=== PATIENT | male | born 1965 | race Caucasian/White ===

== ENCOUNTER 2017-03-23 15:23 | Emergency (ER) | payer OTHER ==
--- NOTE | 2017-03-23 15:35 | EDM.PDOC ---
ED HPI Allergic Reaction - General Chief Complaint: Allergic Reaction Stated Complaint: ALLERGIC REACTION Time Seen by Provider: 03/23/17 15:29 - History of Present Illness INITIAL COMMENTS - FREE TEXT/NARRATIVE: HISTORY AND PHYSICAL: History of present illness: Patient's 51-year-old white male concern of hives he's been using Benadryl for this with no improvement he is to change all his detergents washed all of his clothes and has yet to be made to identify any possible allergens. There is no tongue or lip swelling no shortness of breath and no other Review of systems: As per history of present illness and below otherwise all systems reviewed and negative. Past medical history: As per history of present illness and as reviewed below otherwise noncontributory. Surgical history: As per history of present illness and as reviewed below otherwise noncontributory. Social history: No reported history of drug or alcohol abuse. Family history: As per history of present illness and as reviewed below otherwise noncontributory. Physical exam: HEENT: Atraumatic, normocephalic, pupils reactive, negative for conjunctival pallor or scleral icterus, mucous membranes moist, throat clear, neck supple, nontender, trachea midline. No tongue or lips will Lungs: Clear to auscultation, breath sounds equal bilaterally, chest nontender. Heart: S1S2, regular, negative for clicks, rubs, or JVD. Abdomen: Soft, nondistended, nontender. Negative for masses or hepatosplenomegaly. Negative for costovertebral tenderness. Pelvis: Stable nontender. Genitourinary: Deferred. Rectal: Deferred. Extremities: Atraumatic, negative for cords or calf pain. Neurovascular unremarkable. Neuro: Awake, alert, oriented. Cranial nerves II through XII unremarkable. Cerebellum unremarkable. Motor and sensory unremarkable throughout. Exam nonfocal. Skin: Patient has a urticaria type rash noted diffusely Diagnostics: None Therapeutics: None Impression: #1 urticaria Definitive disposition and diagnosis as appropriate pending reevaluation and review of above. - Related Data Allergies/ADRs: Allergies Allergy/AdvReac Type Severity Reaction Status Date / Time No Known Allergies Allergy Verified 07/29/14 14:30 Home Meds: Home Meds DULoxetine [Cymbalta] 60 mg PO DAILY 07/29/14 [History] Valsartan [Diovan] 160 mg PO DAILY 07/29/14 [History] Past Medical History - Past Health History Medical/Surgical History: Denies Medical/Surgical History Social & Family History - Tobacco Use Smoking Status *Q: Current Every Day Smoker Years of Tobacco use: 30 Used Tobacco, but Quit: No Second Hand Smoke Exposure: Yes - Recreational Drug Use Recreational Drug Use: No ED ROS ALLERGIC REACTION - Review of Systems Review Of Systems: ROS reveals no pertinent complaints other than HPI. ED EXAM GENERAL NO PERIP PULSE - Physical Exam Exam: See Below (See dictation) Departure - Departure Time of Disposition: 15:32 Disposition: Home, Self-Care 01 Condition: good Clinical Impression: Urticaria Additional Instructions: The following information is given to patients seen in the emergency department who are being discharged to home. This information is to outline your options for follow-up care. We provide all patients seen in our emergency department with a follow-up referral. The need for follow-up, as well as the timing and circumstances, are variable depending upon the specifics of your emergency department visit. If you don't have a primary care physician on staff, we will provide you with a referral. We always advise you to contact your personal physician following an emergency department visit to inform them of the circumstance of the visit and for follow-up with them and/or the need for any referrals to a consulting specialist. The emergency department will also refer you to a specialist when appropriate. This referral assures that you have the opportunity for followup care with a specialist. All of these measure are taken in an effort to provide you with optimal care, which includes your followup. Under all circumstances we always encourage you to contact your private physician who remains a resource for coordinating your care. When calling for followup care, please make the office aware that this follow-up is from your recent emergency room visit. If for any reason you are refused follow-up, please contact the [facility] emergency department at and asked to speak to the emergency department charge nurse. [facility] [address] [place] [id number] Medrol Dosepak as prescribed continue Benadryl Zantac as prescribed followup primary medical doctor and/or clinical followup return as needed as discussed
[2017-03-23 15:58] VITALS: BP 144/85
== END 2017-03-23 15:51 | disposition home or self-care (01) ==
LOC: MW.ED 15:23
DX: L50.9 Urticaria, unspecified (principal); Z79.899 Other long term (current) drug therapy; F17.200 Nicotine dependence, unspecified, uncomplicated
CPT/HCPCS: 99282; 99283

== ENCOUNTER 2017-03-26 08:57 | Observation (INO) | payer OTHER ==
[2017-03-26] MEDS ORDERED: diphenhydrAMINE 50 MG/ML SDV IVPUSH ONE (09:27)
[2017-03-26] MEDS ORDERED: Albuterol/Ipratropium 3.0-0.5 MG/3 ML Neb Soln NEB ONE (09:27)
[2017-03-26] MEDS ORDERED: methylPREDNISolone Sodium Succinate 125 MG/2 ML SDV IVPUSH ONE (09:27)
--- NOTE | 2017-03-26 09:38 | EDM.PDOC ---
ED HPI Allergic Reaction - General Chief Complaint: Allergic Reaction Stated Complaint: ALLERGIC REACTION Time Seen by Provider: 03/26/17 09:29 - History of Present Illness INITIAL COMMENTS - FREE TEXT/NARRATIVE: HISTORY AND PHYSICAL: History of present illness: This 51-year-old white male transferred Materna facial swelling upper lip swelling and difficulty breathing and worse over last 24 hours he has had a rash off and on when seen here several days prior for this presumptive allergic reaction he was put on Medrol Dosepak and Zantac he has been using Benadryl at home he does have appointment with an allergy bag press operator tomorrow this episode last night was more severe it has improved slightly he is on Diovan and states he's been on this for months this was recently changed to a generic form. Review of systems: As per history of present illness and below otherwise all systems reviewed and negative. Past medical history: As per history of present illness and as reviewed below otherwise noncontributory. Surgical history: As per history of present illness and as reviewed below otherwise noncontributory. Social history: No reported history of drug or alcohol abuse. Family history: As per history of present illness and as reviewed below otherwise noncontributory. Physical exam: HEENT: Atraumatic, normocephalic, pupils reactive, negative for conjunctival pallor or scleral icterus, mucous membranes moist, throat clear, neck supple, nontender, trachea midline. Angioedema noted primarily involving his upper lip Lungs: Rare end expiratory wheezing, breath sounds equal bilaterally, chest nontender. Heart: S1S2, regular, negative for clicks, rubs, or JVD. Abdomen: Soft, nondistended, nontender. Negative for masses or hepatosplenomegaly. Negative for costovertebral tenderness. Pelvis: Stable nontender. Genitourinary: Deferred. Rectal: Deferred. Extremities: Atraumatic, negative for cords or calf pain. Neurovascular unremarkable. Neuro: Awake, alert, oriented. Cranial nerves II through XII unremarkable. Cerebellum unremarkable. Motor and sensory unremarkable throughout. Exam nonfocal. Diagnostics: None Therapeutics: Albuterol ipratropium nebulizer Solu-Medrol 125 mg IV Benadryl 50 mg IV Impression: #1 angioedema #2 bronchospasm Definitive disposition and diagnosis as appropriate pending reevaluation and review of above. - Related Data Allergies/ADRs: Allergies Allergy/AdvReac Type Severity Reaction Status Date / Time No Known Allergies Allergy Verified 03/26/17 09:12 Home Meds: Home Meds DULoxetine [Cymbalta] 60 mg PO DAILY 07/29/14 [History] Valsartan [Diovan] 160 mg PO DAILY 07/29/14 [History] Past Medical History - Past Health History Medical/Surgical History: Denies Medical/Surgical History Cardiovascular History: Reports: Hypertension Psychiatric History: Reports: Depression Endocrine/Metabolic History: Reports: Obesity/BMI 30+ - Past Surgical History GI Surgical History: Reports: Cholecystectomy Social & Family History - Family History Family Medical History: Noncontributory - Tobacco Use Smoking Status *Q: Current Every Day Smoker Years of Tobacco use: 35 Packs/Tins Daily: 1 Used Tobacco, but Quit: No Second Hand Smoke Exposure: Yes - Caffeine Use Caffeine Use: Reports: Coffee Caffeine Use Comment: 1 cup - Recreational Drug Use Recreational Drug Use: No ED ROS ALLERGIC REACTION - Review of Systems Review Of Systems: ROS reveals no pertinent complaints other than HPI. ED EXAM GENERAL NO PERIP PULSE - Physical Exam Exam: See Below (See dictated) Course - Vital Signs Last Recorded V/S: Last Vital Signs Temp 36.7 C 03/26/17 09:12 Pulse 80 03/26/17 09:42 Resp 18 03/26/17 09:42 BP 162/88 H 03/26/17 09:42 Pulse Ox 97 03/26/17 09:42 - Orders/Labs/Meds Orders: Active Orders 24 hr Category Date Time Status RT Aerosol Therapy [RC] ASDIRECTED Care 03/26/17 09:27 Active Meds: Medications Discontinued Medications Generic Name Dose Route Start Last Admin Trade Name Dasha PRN Reason Stop Dose Admin Albuterol/Ipratropium 3 ml 03/26/17 09:27 03/26/17 09:31 Duoneb 3.0-0.5 Mg/3 Ml NEB 03/26/17 09:28 3 ml ONETIME ONE Administration Diphenhydramine HCl 50 mg 03/26/17 09:27 03/26/17 09:36 Benadryl IVPUSH 03/26/17 09:28 50 mg ONETIME ONE Administration Methylprednisolone Sodium Succinate 125 mg 03/26/17 09:27 03/26/17 09:37 Solu-Medrol IVPUSH 03/26/17 09:28 125 mg ONETIME ONE Administration Departure - Departure Time of Disposition: 10:06 Disposition: Refer to Observation Condition: good Clinical Impression: Angioedema, Bronchospasm - My Orders Last 24 Hours: My Active Orders 03/26/17 09:27 RT Aerosol Therapy [RC] ASDIRECTED - Assessment/Plan Last 24 Hours: My Active Orders 03/26/17 09:27 RT Aerosol Therapy [RC] ASDIRECTED
[2017-03-26] MEDS ORDERED: Nicotine 21 MG/24 Hr Patch TRDERM ONE (11:18)
[2017-03-26] MEDS ORDERED: diphenhydrAMINE 25 MG Cap PO PRN (12:01)
[2017-03-26] MEDS ORDERED: Ondansetron 4 MG/2 ML SDV IVPUSH PRN (12:02)
--- NOTE | 2017-03-26 12:18 | PCM.HP ---
H&P History of Present Illness - History of Present Illness Initial Comments - Free Text/Narative: 51 yo male who four days ago developed urticarial rash for which he was seen in the [place] ED and given a solumedrol dose pack. He did have follow up appointment at the [facility] who set up an appointment with an Case Management Director tomorrow in [place]. LAst night his rash came back on his arm and legs and he did have lip swelling. He denied any shortness of breath or difficulty swallowing. He denies any new medications. He has not been taking his Diovan or celexa for the past three days. He went back to the [place] [facility] this [place] who sent him to the ED. IN the ED he received solumedrol and benadryl with improvement of rash and resolution of lip swelling. 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 spine disease Psychiatric History: Reports: Depression Endocrine/Metabolic History: Reports: Obesity/BMI 30+ - Past Surgical History GI Surgical History: Reports: Cholecystectomy Social & Family History - Family History Family Medical History: Noncontributory Cardiac: Reports: Hypertension Endocrine/Metabolic: Reports: Diabetes, type II Oncologic: Reports: Hodgkin's lymphoma - Tobacco Use Smoking Status *Q: Current Every Day Smoker Years of Tobacco use: 35 Packs/Tins Daily: 1 Used Tobacco, but Quit: No Second Hand Smoke Exposure: Yes - Caffeine Use Caffeine Use: Reports: Coffee, Energy drinks, Soda, Tea Caffeine Use Comment: 1 cup - Recreational Drug Use Recreational Drug Use: No H&P Review of Systems - Review of Systems: Review Of Systems: See Below General: Reports: no symptoms HEENT: Reports: no symptoms Pulmonary: Reports: No Symptoms Cardiovascular: Reports: no symptoms Gastrointestinal: Reports: No symptoms Genitourinary: Reports: no symptoms Musculoskeletal: Reports: no symptoms Skin: Reports: no symptoms Psychiatric: Reports: no symptoms Neurological: Reports: No Symptoms Hematologic/Lymphatic: Reports: no symptoms Immunologic: Reports: no symptoms Exam - Exam Exam: See Below - Vital Signs Vital Signs: Last Vital Signs Temp 36.9 C 03/26/17 11:40 Pulse 79 03/26/17 11:40 Resp 18 03/26/17 11:40 BP 166/84 H 03/26/17 11:40 Pulse Ox 97 03/26/17 11:40 Weight: 142.428 kg - Exam General: alert, oriented, 4 Lungs: Clear to auscultation, Normal respiratory effort Cardiovascular: regular rate, regular rhythm Abdomen: normal bowel sounds, soft Extremities: normal inspection Skin: warm, dry, intact, rash (patchy mildly erythematous rash on arms) *Q Meaningful Use (ADM) - VTE *Q VTE Criteria *Q: - Stroke *Q Stroke Criteria *Q: - AMI *Q AMI Criteria *Q: Problem List Initiated/Reviewed/Updated: Yes Orders Last 24hrs: Active Orders 24 hr Category Date Time Status Antiembolic Devices [RC] PER UNIT ROUTINE Care 03/26/17 12:06 Ordered Oxygen Therapy [RC] PRN Care 03/26/17 12:02 Ordered Pulse Oximetry [RC] CONTINUOUS Care 03/26/17 12:03 Ordered Up ad Park [RC] ASDIRECTED Care 03/26/17 12:02 Ordered VTE/DVT Education [RC] PER UNIT ROUTINE Care 03/26/17 12:02 Ordered Vital Signs [RC] Q4H Care 03/26/17 12:02 Ordered Regular Diet [DIET] Diet 03/26/17 Breakfast Ordered BASIC METABOLIC PANEL,BMP [CHEM] AM Lab 03/27/17 05:11 Ordered CBC WITH AUTO DIFF [HEME] AM Lab 03/27/17 05:11 Ordered Ondansetron [Zofran] Med 03/26/17 12:02 Ordered 4 mg IVPUSH Q4H PRN diphenhydrAMINE [Benadryl] Med 03/26/17 16:00 Ordered 25 mg PO Q8H predniSONE Med 03/27/17 08:00 Ordered 40 mg PO WITHBREAKFAST Sequential Compression Device [OM.PC] Per Unit Routine Oth 03/26/17 12:03 Ordered Resuscitation Status Routine Resus Stat 03/26/17 12:02 Ordered Medication Orders Diphenhydramine HCl (Benadryl) 25 mg PO Q8H MAYTE Ondansetron HCl (Zofran) 4 mg IVPUSH Q4H PRN PRN Reason: Nausea Prednisone (Prednisone) 40 mg PO WITHBREAKFAST MAYTE Assessment/Plan Comment:: 51 yo male admitted with appears to be an acute allergy with angioedema. We will treat with steroids and antihistamines and monitor overnight.
[2017-03-26 13:05] LABS: CHLORIDE,CL 104 mmol/L (98-110); SODIUM,NA 137 mmol/L (136-146)
[2017-03-26] MEDS: diphenhydrAMINE 25 MG Cap PO SCH ×2 (16:08→23:50)
[2017-03-27 07:34] VITALS: BP 139/79
[2017-03-27] MEDS: diphenhydrAMINE 25 MG Cap PO SCH (07:42)
[2017-03-27 07:50] LABS: CHLORIDE,CL 105 mmol/L (98-110); SODIUM,NA 138 mmol/L (136-146)
[2017-03-27] MEDS ORDERED: predniSONE 20 MG Tab PO SCH (08:00)
[2017-03-27] MEDS ORDERED: methylPREDNISolone Sodium Succinate 125 MG/2 ML SDV IVPUSH ONE (09:08)
--- NOTE | 2017-03-27 09:38 | PCM.DCSUM1 ---
<Galileo Courtney - Last Filed: 03/27/17 09:33> Discharge Summary - Hospital Course Free Text/Narrative:: Admission diagnoses: #1. Angioedema #2. Urticaria Discharge diagnoses: #1. Angioedema, improved #2. Urticaria 51-year-old male that was admitted with angioedema and urticaria likely secondary to an allergic reaction. Patient was given Solu-Medrol IV and Benadryl in the emergency room which resolved his angioedema. He was admitted overnight for observation. He was placed on prednisone by mouth and Benadryl by mouth. His angioedema did not return during admission. His urticaria did return just prior to discharge and he was given a one-time dose of Solu-Medrol. During admission, the patient denied any chest pain, palpitations, shortness of breath , wheezing, cough, abdominal pain, nausea, vomiting, constipation, diarrhea, fever. His white blood cell count was elevated at 21,000 and did decrease to 18, 000 at time of discharge. It is likely that his elevated white blood cell count is secondary to his recent course of outpatient steroid treatment and also the steroids that he received while admitted here. - Discharge Data Discharge Date: 03/27/17 Discharge Disposition: Home, Self-Care 01 Condition: Fair - Discharge Diagnosis/Problem(s) (1) Angioedema SNOMED Code(s): 64706006 ICD Code: T78.3XXA - ANGIONEUROTIC EDEMA, INITIAL ENCOUNTER Status: Acute (2) Urticaria SNOMED Code(s): 100460805 ICD Code: L50.9 - URTICARIA, UNSPECIFIED Status: Acute - Patient Instructions Diet: Regular Diet as Tolerated Activity: As Tolerated Driving: May Drive Today Showering/Bathing: May Shower Notify Provider of: Fever, Increased Pain, Nausea and/or Vomiting - Discharge Plan Prescriptions/Med Rec: Prednisone [IJD: predniSONE] 40 mg PO WITHBREAKFAST #7 tablet Home Medications: Home Meds DULoxetine [Cymbalta] 60 mg PO DAILY 07/29/14 [History] Valsartan [Diovan] 160 mg PO DAILY 07/29/14 [History] Prednisone [IJD: predniSONE] 40 mg PO WITHBREAKFAST #7 tablet 03/27/17 [Rx] Patient Handouts: Angioedema, Hern-by-Zobg, Prednisone tablets Referrals: [facility] [Outside] - 04/11/17 9:30 am (Please see Carlene Rodrigues NP) - Discharge Summary/Plan Comment DC Time >30 min.: No Discharge Summary/Plan Comment: Admission diagnoses: #1. Angioedema #2. Urticaria Discharge diagnoses: #1. Angioedema, improved #2. Urticaria 51-year-old male that was admitted with angioedema and urticaria likely secondary to an allergic reaction. Patient was given Solu-Medrol IV and Benadryl in the emergency room which resolved his angioedema. He was admitted overnight for observation. He was placed on prednisone by mouth and Benadryl by mouth. His angioedema did not return during admission. His urticaria did return just prior to discharge and he was given a one-time dose of Solu-Medrol. During admission, the patient denied any chest pain, palpitations, shortness of breath , wheezing, cough, abdominal pain, nausea, vomiting, constipation, diarrhea, fever. His white blood cell count was elevated at 21,000 and did decrease to 18, 000 at time of discharge. It is likely that his elevated white blood cell count is secondary to his recent course of outpatient steroid treatment and also the steroids that he received while admitted here. Discharge plan: #1. Patient does have an appointment with an district superintendent in [place], [place] today. #2. Patient will followup with his PCP on April 11, 2017. #3. Patient was prescribed prednisone 40 mg daily, 7 tabs, zero refills. #4. Encouraged patient to use Benadryl in the evening but to avoid using it he will be driving. - Patient Data Vitals - Most Recent: Last Vital Signs Temp 96.4 F 03/27/17 07:32 Pulse 86 03/27/17 07:32 Resp 22 H 03/27/17 07:32 BP 139/79 03/27/17 07:32 Pulse Ox 95 03/27/17 07:32 Weight - Most Recent: 142.428 kg I&O - Last 24 hours: Intake & Output 03/26/17 03/27/17 03/27/17 22:59 06:59 14:59 Intake Total 840 600 Output Total 450 750 Balance 390 -150 Lab Results - Last 24 hrs: Laboratory Results - last 24 hr 03/26/17 03/26/17 03/27/17 Range/Units 12:32 12:32 06:41 WBC 21.36 H 18.68 H (4.0-11.0) K/uL RBC 5.15 4.70 (4.50-5.90) M/uL Hgb 16.0 14.5 (13.0-17.0) g/dL Hct 46.9 42.5 (38.0-50.0) % MCV 91.1 90.4 (80.0-98.0) fL MCH 31.1 30.9 (27.0-32.0) pg MCHC 34.1 34.1 (31.0-37.0) g/dL RDW Std Deviation 43.6 43.4 (28.0-62.0) fl RDW Coeff of Yury 13 13 (11.0-15.0) % Plt Count 279 310 (150-400) K/uL MPV 9.60 9.60 (7.40-12.00) fL Neut % (Auto) 67.2 (48.0-80.0) % Lymph % (Auto) 25.8 (16.0-40.0) % [place] % (Auto) 6.8 (0.0-15.0) % Eos % (Auto) 0.1 (0.0-7.0) % Baso % (Auto) 0.1 (0.0-1.5) % Neut # (Auto) 12.6 H (1.4-5.7) K/uL Lymph # (Auto) 4.8 H (0.6-2.4) K/uL [place] # (Auto) 1.3 H (0.0-0.8) K/uL Eos # (Auto) 0.0 (0.0-0.7) K/uL Baso # (Auto) 0.0 (0.0-0.1) K/uL Add Manual Diff YES Neutrophils % (Manual) 85 H (48.0-80.0) % Band Neutrophils % 8 % Lymphocytes % (Manual) 3 L (16.0-40.0) % Monocytes % (Manual) 4 (0.0-15.0) % Nucleated RBC % 0.0 0.0 /100WBC Absolute Seg Neuts 18.2 Band Neutrophils # 1.7 Lymphocytes # (Manual) 0.6 Monocytes # (Manual) 0.9 Nucleated RBCs # 0 0 K/uL Sodium 137 (136-146) mmol/L Potassium 4.4 (3.5-5.1) mmol/L Chloride 104 (98-110) mmol/L Carbon Dioxide 21 (21-31) mmol/L BUN 19 (6.0-23.0) mg/dL Creatinine 1.0 (0.6-1.5) mg/dL Est Cr Clr Drug Dosing 108.50 mL/min Estimated GFR (MDRD) > 60.0 ml/min Glucose 172 H (60-110) mg/dL Calcium 9.3 (8.8-10.8) mg/dL 03/27/17 Range/Units 06:41 WBC (4.0-11.0) K/uL RBC (4.50-5.90) M/uL Hgb (13.0-17.0) g/dL Hct (38.0-50.0) % MCV (80.0-98.0) fL MCH (27.0-32.0) pg MCHC (31.0-37.0) g/dL RDW Std Deviation (28.0-62.0) fl RDW Coeff of Yury (11.0-15.0) % Plt Count (150-400) K/uL MPV (7.40-12.00) fL Neut % (Auto) (48.0-80.0) % Lymph % (Auto) (16.0-40.0) % [place] % (Auto) (0.0-15.0) % Eos % (Auto) (0.0-7.0) % Baso % (Auto) (0.0-1.5) % Neut # (Auto) (1.4-5.7) K/uL Lymph # (Auto) (0.6-2.4) K/uL [place] # (Auto) (0.0-0.8) K/uL Eos # (Auto) (0.0-0.7) K/uL Baso # (Auto) (0.0-0.1) K/uL Add Manual Diff Neutrophils % (Manual) (48.0-80.0) % Band Neutrophils % % Lymphocytes % (Manual) (16.0-40.0) % Monocytes % (Manual) (0.0-15.0) % Nucleated RBC % /100WBC Absolute Seg Neuts Band Neutrophils # Lymphocytes # (Manual) Monocytes # (Manual) Nucleated RBCs # K/uL Sodium 138 (136-146) mmol/L Potassium 4.0 (3.5-5.1) mmol/L Chloride 105 (98-110) mmol/L Carbon Dioxide 21 (21-31) mmol/L BUN 17 (6.0-23.0) mg/dL Creatinine 0.8 (0.6-1.5) mg/dL Est Cr Clr Drug Dosing 135.63 mL/min Estimated GFR (MDRD) > 60.0 ml/min Glucose 104 (60-110) mg/dL Calcium 8.7 L (8.8-10.8) mg/dL Med Orders - Current: Current Medications Diphenhydramine HCl (Benadryl) 25 mg PO Q8H [facility] Last Admin: 03/27/17 07:42 Dose: 25 mg Ondansetron HCl (Zofran) 4 mg IVPUSH Q4H PRN PRN Reason: Nausea Prednisone (Prednisone) 40 mg PO WITHBREAKFAST [facility] Last Admin: 03/27/17 07:42 Dose: 40 mg Discontinued Medications Albuterol/Ipratropium (Duoneb 3.0-0.5 Mg/3 Ml) 3 ml NEB ONETIME ONE Stop: 03/26/17 09:28 Last Admin: 03/26/17 09:31 Dose: 3 ml Diphenhydramine HCl (Benadryl) 50 mg IVPUSH ONETIME ONE Stop: 03/26/17 09:28 Last Admin: 03/26/17 09:36 Dose: 50 mg Diphenhydramine HCl (Benadryl) 25 mg PO Q6H PRN PRN Reason: Allergies Methylprednisolone Sodium Succinate (Solu-Medrol) 125 mg IVPUSH ONETIME ONE Stop: 03/26/17 09:28 Last Admin: 03/26/17 09:37 Dose: 125 mg Methylprednisolone Sodium Succinate (Solu-Medrol) 125 mg IVPUSH ONETIME ONE Stop: 03/27/17 09:09 Last Admin: 03/27/17 09:26 Dose: 125 mg Nicotine (Habitrol) 21 mg TRDERM ONETIME ONE Stop: 03/26/17 11:19 Last Admin: 03/26/17 11:27 Dose: 21 mg *Q Meaningful Use (DIS) - VTE *Q VTE Criteria *Q: - Stroke *Q Stroke Criteria *Q: - AMI *Q AMI Criteria *Q: <Gavin Joe - Last Filed: 03/28/17 15:48> Discharge Summary - Hospital Course HPI Initial Comments: I was present with the resident during history and examination. I discussed the case with the resident and agree with the findings and plan as documented in the residents note. - Patient Data Vitals - Most Recent: Last Vital Signs Temp 35.8 C 03/27/17 07:32 Pulse 86 03/27/17 07:32 Resp 22 H 03/27/17 07:32 BP 139/79 03/27/17 07:32 Pulse Ox 95 03/27/17 07:32 Med Orders - Current: Current Medications Discontinued Medications Albuterol/Ipratropium (Duoneb 3.0-0.5 Mg/3 Ml) 3 ml NEB ONETIME ONE Stop: 03/26/17 09:28 Last Admin: 03/26/17 09:31 Dose: 3 ml Diphenhydramine HCl (Benadryl) 50 mg IVPUSH ONETIME ONE Stop: 03/26/17 09:28 Last Admin: 03/26/17 09:36 Dose: 50 mg Diphenhydramine HCl (Benadryl) 25 mg PO Q6H PRN PRN Reason: Allergies Diphenhydramine HCl (Benadryl) 25 mg PO Q8H MAYTE Last Admin: 03/27/17 07:42 Dose: 25 mg Methylprednisolone Sodium Succinate (Solu-Medrol) 125 mg IVPUSH ONETIME ONE Stop: 03/26/17 09:28 Last Admin: 03/26/17 09:37 Dose: 125 mg Methylprednisolone Sodium Succinate (Solu-Medrol) 125 mg IVPUSH ONETIME ONE Stop: 03/27/17 09:09 Last Admin: 03/27/17 09:26 Dose: 125 mg Nicotine (Habitrol) 21 mg TRDERM ONETIME ONE Stop: 03/26/17 11:19 Last Admin: 03/26/17 11:27 Dose: 21 mg Ondansetron HCl (Zofran) 4 mg IVPUSH Q4H PRN PRN Reason: Nausea Prednisone (Prednisone) 40 mg PO WITHBREAKFAST MAYTE Last Admin: 03/27/17 07:42 Dose: 40 mg *Q Meaningful Use (DIS) - VTE *Q VTE Criteria *Q: - Stroke *Q Stroke Criteria *Q: - AMI *Q AMI Criteria *Q:
== END 2017-03-27 09:50 | disposition home or self-care (01) ==
LOC: MW.ED 08:57 → MW.MS 11:38
PROVIDERS: ADMIT Internal Medicine; ATTEND Internal Medicine
DX: L50.9 Urticaria, unspecified (principal); T78.3XXA Angioneurotic edema, initial encounter; I10 Essential (primary) hypertension; Z79.899 Other long term (current) drug therapy; E66.9 Obesity, unspecified; Z68.30 Body mass index [BMI] 30.0-30.9, adult; F32.9 Major depressive disorder, single episode, unspecified; F17.200 Nicotine dependence, unspecified, uncomplicated
CPT/HCPCS: 36415; 80048; 85025; 94664; 96374; 96375; 96376; 99285; A9270; G0378; J1200; J2930

== ENCOUNTER 2018-07-17 10:52 | Day surgery (SDC) | payer OTHER ==
[~2018-07-17 10:52] MED LIST: Lactated Ringers 1,000 ML IV SCH
--- NOTE | 2018-07-17 11:25 | PCM.PREANE ---
Preanesthetic Assessment - Procedure Proposed Procedure: Colonoscopy - Anesthesia/Transfusion/Family Hx Anesthesia History: Prior Anesthesia Without Reaction Other Type of Anesthesia Reaction Comment: "fathers BP dropped during surgery" Family History of Anesthesia Reaction: No Transfusion History: No Prior Transfusion(s) Intubation History: Unknown - Review of Systems General: No Symptoms Pulmonary: Other (q day smoker) Cardiovascular: Other (HTN) Gastrointestinal: Other (prior polyps) Neurological: Pre-Existing Deficit (bilateral arm pain) Other: Reports: None - Physical Assessment NPO Status Date: 07/16/18 NPO Status Time: 22:00 ASA Class: 3 Mental Status: Alert & Oriented x3 Airway Class: Mallampati = 2 Dentition: Reports: Normal Dentition Thyro-Mental Finger Breadths: 3 (huge , full neck) Mouth Opening Finger Breadths: 3 ROM/Head Extension: Limited/Partial (due to pain) Lungs: Clear to Auscultation, Normal Respiratory Effort Cardiovascular: Regular Rate, Regular Rhythm - Allergies Allergies/Adverse Reactions: Allergies Allergy/AdvReac Type Severity Reaction Status Date / Time bupropion [From Wellbutrin] Allergy Hives Verified 07/13/18 13:12 simvastatin Allergy sore throat Verified 07/13/18 13:12 testosterone Allergy Hives Verified 07/13/18 13:12 - Blood Blood Available: No Product(s) Available: None - Anesthesia Plan Pre-Op Medication Ordered: None - Acknowledgements Anesthesia Type Planned: MAC Pt an Appropriate Candidate for the Planned Anesthesia: Yes Alternatives and Risks of Anesthesia Discussed w Pt/Guardian: Yes Pt/Guardian Understands and Agrees with Anesthesia Plan: Yes PreAnesthesia Questionnaire - Past Health History Medical/Surgical History: Denies Medical/Surgical History HEENT History: Reports: Other (See Below) Other HEENT History: wears glasses Cardiovascular History: Reports: High Cholesterol, Hypertension Respiratory History: Reports: Sleep Apnea Other Respiratory History: uses CPAP Gastrointestinal History: Reports: Colon Polyp Genitourinary History: Reports: None Musculoskeletal History: Reports: Back Pain, Chronic Other Musculoskeletal History: degenerative disc disease Psychiatric History: Reports: Depression Endocrine/Metabolic History: Reports: Obesity/BMI 30+ - Past Surgical History Head Surgeries/Procedures: Reports: None HEENT Surgical History: Reports: Tonsillectomy GI Surgical History: Reports: Cholecystectomy, Colonoscopy Male Surgical History: Reports: Vasectomy - SUBSTANCE USE Smoking Status *Q: Current Every Day Smoker Tobacco Use Within Last Twelve Months: Cigarettes Recreational Drug Use History: No - HOME MEDS Home Medications: Home Meds DULoxetine [Cymbalta] 2 tab PO DAILY 07/29/14 [History] Valsartan [Diovan] 160 mg PO BEDTIME 07/29/14 [History] Ibuprofen 800 mg PO ASDIRECTED PRN 07/13/18 [History] Oxymetazoline [Afrin Original 0.05% Nasal [place]] 1 spray NASBOTH DAILY PRN 07/13 [History] oxyCODONE HCl/Acetaminophen [Oxycodone-Acetaminophen 5-325] 1 tab PO ASDIRECTED PRN 07/13/18 [History] - CURRENT (IN HOUSE) MEDS Current Meds: Current Medications Lactated Ringer's (Ringers, Lactated) 1,000 mls @ 125 mls/hr IV ASDIRECTED MAYTE
[2018-07-17] MEDS ORDERED: Lidocaine 2% 5 ML SDV ONE (12:16)
[2018-07-17] MEDS ORDERED: Propofol 200 MG/20 ML SDV ONE ×2 (12:16→12:26)
[2018-07-17] MEDS ORDERED: Midazolam 1 MG/ML 2 ML SDV ONE (12:17)
[2018-07-17] MEDS ORDERED: fentaNYL 100 MCG/2 ML SDV ONE (12:17)
--- NOTE | 2018-07-17 12:39 | PCM.OPNOTE ---
- General Post-Op/Procedure Note Date of Surgery/Procedure: 07/17/18 Operative Procedure(s): colonoscopy Findings: see [id number] Pre Op Diagnosis: scrn colonoscopy Post-Op Diagnosis: Same Anesthesia Technique: Moderate Sedation Primary Surgeon: Matthew Kyle Complications: None Condition: Good
--- NOTE | 2018-07-17 12:49 | PCM.POSTAN ---
POST ANESTHESIA ASSESSMENT - MENTAL STATUS Mental Status: Alert, Oriented - RESPIRATORY Respiratory Status: Respiratory Rate WNL, Airway Patent, O2 Saturation Stable - CARDIOVASCULAR CV Status: Pulse Rate WNL, Blood Pressure Stable - GASTROINTESTINAL GI Status: No Symptoms - PAIN Pain Score: 0 - POST OP HYDRATION Hydration Status: Adequate & Stable
--- NOTE | 2018-07-17 13:09 | PCM48HPAN ---
Post Anesthesia Note - EVALUATION WITHIN 48HRS OF ANESTHETIC Vital Signs in Normal Range: Yes Patient Participated in Evaluation: Yes Respiratory Function Stable: Yes Airway Patent: Yes Cardiovascular Function Stable: Yes Hydration Status Stable: Yes Pain Control Satisfactory: Yes Nausea and Vomiting Control Satisfactory: Yes Mental Status Recovered: Yes Resp Rate: 10
[2018-07-17 13:14] VITALS: BP 100/73
--- NOTE | 2018-07-17 14:33 | OR ---
SURGEON: Matthew Kyle MD DATE OF PROCEDURE: 07/17/2018 PREOPERATIVE DIAGNOSIS: Screening colonoscopy. POSTOPERATIVE DIAGNOSIS: Diverticulosis. PROCEDURE PERFORMED: Colonoscopy. PROCEDURE IN DETAIL: The patient was taken to the endoscopy room. A time out was called, patient identified, and procedure identified. Diprivan was then administrated. Patient went from awake to sleep, hearing doctor talking or door closing is normal. Perineum inspection and digital examination were then performed. A well- lubricated colonoscope was gently inserted through the rectum, advanced past the rectosigmoid junction, the descending colon, splenic flexure, transverse colon, hepatic flexure, ascending colon, arrived to the cecum. Cecum was identified as dictated in the finding. Then the scope was carefully withdrawn while attention was paid to the mucosal surface for any abnormality. Air will be sucked out during the scope withdrawal. At the rectum, retroflexed to examine any rectal diseases, fistula or hemorrhoids. Patient tolerated procedure well. There were no intraoperative complications, and Dr. Kyle was present throughout the whole procedure. FINDINGS: 1. The patient is easily sedated with AIRPLANE COVERER and Diprivan. The patient is soundly snoring. 2. The patient's bowel prep is below average. Large amount of green liquid stool found on the colon, compromised study, requiring constant irrigation. 3. The patient's colon is rather straight forward. Cecum indicated by ileocecal fold, one-to-one indentation, and light emittance as well as appendiceal orifice. Mucosa examined upon scope pulling out with constant irrigation. The patient has mild diverticulosis on the splenic fracture and no signs or symptom of diverticulitis, and no polyp, mass, growth, inflammation, stricture, ulceration, AV malformation, bleeding, none of those. The patient has moderate internal hemorrhoids. No external hemorrhoids. The patient would benefit from repeat colonoscopy in 10 years from today or if clinically suggest earlier. MORE / KARLEE /[id number]
== END 2018-07-17 13:16 | disposition home or self-care (01) ==
LOC: MW.SDS 10:52
PROVIDERS: ATTEND Surgery
DX: Z12.11 Encounter for screening for malignant neoplasm of colon (principal); K57.30 Diverticulosis of large intestine without perforation or abscess without bleeding; I10 Essential (primary) hypertension; G47.30 Sleep apnea, unspecified; Z99.89 Dependence on other enabling machines and devices; M19.90 Unspecified osteoarthritis, unspecified site; E78.00 Pure hypercholesterolemia, unspecified; E66.9 Obesity, unspecified; Z68.39 Body mass index [BMI] 39.0-39.9, adult; F32.9 Major depressive disorder, single episode, unspecified; F17.210 Nicotine dependence, cigarettes, uncomplicated; Z88.8 Allergy status to other drugs, medicaments and biological substances; Z79.899 Other long term (current) drug therapy
CPT/HCPCS: 45378; J2250; J2704; J3010

== ENCOUNTER 2024-04-03 10:25 | Emergency (ER) | payer OTHER ==
[2024-04-03 10:53] VITALS: BP 154/97; PULSE 79
[2024-04-03] MEDS: Tetracaine HCl/PF 0.5% 4 ML Bottle EYEBOTH ONE (11:16)
[2024-04-03] MEDS: Fluorescein 1 MG Ophth Strip EYEBOTH ONE (11:16)
== END 2024-04-03 12:01 | disposition home or self-care (01) ==
LOC: MW.ED 10:25
DX: S05.01XA Injury of conjunctiva and corneal abrasion without foreign body, right eye, initial encounter (principal); I10 Essential (primary) hypertension; E78.00 Pure hypercholesterolemia, unspecified; F17.210 Nicotine dependence, cigarettes, uncomplicated; Z79.899 Other long term (current) drug therapy; Z90.49 Acquired absence of other specified parts of digestive tract; X58.XXXA Exposure to other specified factors, initial encounter
CPT/HCPCS: 99283; J3490